=== PATIENT | male | born 1965 | race Hispanic/Latino ===

== ENCOUNTER 2024-07-30 09:36 | Emergency (ER) | payer OTHER ==
[~2024-07-30] VITALS: Ht 167.6 cm; Wt 77.1 kg
[2024-07-30 11:46] VITALS: PULSE 78; RESP 16; TEMP 98.7
[2024-07-30 11:50] VITALS: BP 138/87; PULSE 77; RESP 16; TEMP 98.4; O2SAT 100
== END 2024-07-30 12:14 | disposition home or self-care (01) ==
LOC: ER 09:45
DX: M79.605 Pain in left leg (principal); M25.552 Pain in left hip; S80.12XA Contusion of left lower leg, initial encounter; W01.0XXA Fall on same level from slipping, tripping and stumbling without subsequent striking against object, initial encounter; Y93.01 Activity, walking, marching and hiking; Y92.89 Other specified places as the place of occurrence of the external cause
CPT/HCPCS: 99282